=== PATIENT | female | born 1975 | race Caucasian/White ===

== ENCOUNTER 2021-10-13 10:05 | Emergency (ER) | payer OTHER ==
[~2021-10-13 10:05] MED LIST: PREDNISONE 50 M50 MG PO
[2021-10-13 10:45] LABS: RED BLOOD COUNT 5.22 M/UL (4.00-5.10); WHITE BLOOD COUNT 7.6 K/UL (4.5-11.0)
[2021-10-13 11:28] LABS: BUN/CREATININE RATIO 14 (0-10)
== END 2021-10-13 14:00 | disposition home or self-care (01) ==
LOC: ER1 10:05
PROVIDERS: Emergency Medicine
DX: R07.2 Precordial pain (principal)
CPT/HCPCS: 71045; 80053; 82550; 82553; 83874; 84484; 85025; 93005; 99284